=== PATIENT | male | born 2000 | race Caucasian/White ===

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

== ENCOUNTER 2025-01-12 20:18 | Emergency (ER) | payer BC | END 2025-01-13 00:15 | disposition home or self-care (01) | LOC: FB.ED 20:18 | DX: J06.9 Acute upper respiratory infection, unspecified (principal); F17.290 Nicotine dependence, other tobacco product, uncomplicated | CPT/HCPCS: 87428-QW; 87651-QW; 99283 ==